=== PATIENT | female | born 1980 | race Two or more races ===

== ENCOUNTER → 2024-12-03 | Emergency (ER) | payer BC ==
[~2024-12-03] VITALS: Ht 167.6 cm; Wt 73.0 kg
[~2024-12-03] MED LIST: KETOROLAC TROMETHAMINE 60 MG VIAL IM ONE; MAXITROL EYE DRO5 ML OP
== END | disposition home or self-care (01) ==
LOC: ER 12:24
DX: H00.016 Hordeolum externum left eye, unspecified eyelid (principal)